=== PATIENT | male | born 1980 | race Asian ===

== ENCOUNTER 2020-08-17 15:07 | Emergency (ER) | payer MEDICAID, SELFPAY ==
[~2020-08-17] VITALS: Ht 165.1 cm; Wt 70.3 kg
[2020-08-17 15:09] VITALS: BP 145/84; Ht 165.1 cm; Wt 70.3 kg
== END 2020-08-17 16:42 | disposition home or self-care (01) ==
LOC: ED 15:07
DX: U07.1 COVID-19 (principal)
CPT/HCPCS: U0003